=== PATIENT | female | born 2000 | race Two or more races ===

== ENCOUNTER → 2024-11-14 | Outpatient (CLI) | payer BC, SELFPAY ==
--- NOTE | 2024-11-14 | XR_ITS ---
Examination: Thoracolumbar spine 2 views TECHNIQUE: AP lateral thoracolumbar spine 2 views Date and time: November 14, 2024 1138 hours INDICATIONS: Lower back pain beginning 2 weeks ago. FINDINGS: Adequate alignment visualized vertebral bodies No thoracic or lumbar fracture No spondylolisthesis Intact pedicles IMPRESSION: No vertebral body fracture or significant arthritic change
== END | disposition home or self-care (01) ==
LOC: CDIM 11:13
PROVIDERS: PCP Family Medicine; Referring Provider Nurse Practitioner Family; Visit Provider Nurse Practitioner Family
DX: M54.50 Low back pain, unspecified (principal)
CPT/HCPCS: 72080